=== PATIENT | female | born 1950 | race Caucasian/White ===

== ENCOUNTER 2019-05-06 06:00 | Outpatient (RCR) | payer MEDICARE, SELFPAY | END 2019-06-05 23:59 | disposition home or self-care (01) | LOC: WPT 06:00 | PROVIDERS: Family Provider Nurse Practitioner Family; PCP Nurse Practitioner Family; Referring Provider Nurse Practitioner Family; Visit Provider Nurse Practitioner Family | DX: M62.82 Rhabdomyolysis (principal) | CPT/HCPCS: 97110; 97161 ==

== ENCOUNTER → 2019-06-03 10:57 | Outpatient (BNVA) | payer MEDICARE, SELFPAY | PROVIDERS: PCP Nurse Practitioner Family; Referring Provider Nurse Practitioner Family; Visit Provider Internal Medicine Rheumatology | DX: M33.20 Polymyositis, organ involvement unspecified (principal); R74.8 Abnormal levels of other serum enzymes; Z11.59 Encounter for screening for other viral diseases; I10 Essential (primary) hypertension; Z79.899 Other long term (current) drug therapy; N30.01 Acute cystitis with hematuria; Z87.891 Personal history of nicotine dependence; Z11.1 Encounter for screening for respiratory tuberculosis | CPT/HCPCS: 36415; 82085; 83516; 86038; 86480; 99204 ==

== ENCOUNTER 2019-06-03 12:51 | Outpatient (CLI) | payer MEDICARE, SELFPAY ==
--- NOTE | 2019-06-03 13:12 | XR_ITS ---
WS: [id number] CHEST 2 VIEWS HISTORY: PRIMARY HYPERTENSION COMPARISON: None available. Lungs: Clear with no abnormality. No pleural effusion or pneumothorax. Cardiac size: Normal. Mediastinum/Aorta: Mild atherosclerosis aorta. Bones: Normal. XR/XR chest 2V* [id number] IMPRESSION: Mild atherosclerosis aorta. Otherwise negative.
== END 2019-06-03 12:52 | disposition home or self-care (01) ==
LOC: RAD 12:57
PROVIDERS: PCP Nurse Practitioner Family; Visit Provider Nurse Practitioner Family
DX: I10 Essential (primary) hypertension (principal); I70.0 Atherosclerosis of aorta; R74.8 Abnormal levels of other serum enzymes; Z79.899 Other long term (current) drug therapy; M33.20 Polymyositis, organ involvement unspecified
CPT/HCPCS: 71046; 82306; 82550; 84450; 84460; 85651; 86140; 87077; 87086; 87186

== ENCOUNTER → 2019-06-03 13:00 | Outpatient (BNVA) | payer MEDICARE, SELFPAY | PROVIDERS: PCP Nurse Practitioner Family; Referring Provider Nurse Practitioner Family; Visit Provider Internal Medicine Rheumatology | DX: I10 Essential (primary) hypertension (principal); M33.20 Polymyositis, organ involvement unspecified; Z79.899 Other long term (current) drug therapy; R74.8 Abnormal levels of other serum enzymes; Z92.29 Personal history of other drug therapy; Z11.59 Encounter for screening for other viral diseases | CPT/HCPCS: 81001 ==

== ENCOUNTER 2019-06-10 08:41 | Outpatient (CLI) | payer MEDICARE, SELFPAY ==
[2019-06-10 09:36] VITALS: BMI 31.9
--- NOTE | 2019-06-10 09:43 | ECG_ITS ---
NAME OF STUDY: EXERCISE SESTAMIBI STRESS TEST INDICATION: Chest Pain; Chest Pain EXERCISE TREADMILL STRESS ORDERING PHYSICIAN: Saleem CLINICAL INFORMATION: Unknown INTERPRETATION: 1. The patient exercised for 2 minutes and 27 seconds on a Puma protocol. She reached a maximum heart rate of 147 beats per minute, which is 97 % of her maximum predicted heart rate. The test was stopped due to fatigue and achieving the desired heart rate. 2. The baseline electrocardiogram reveals sinus rhythm and is a normal tracing. 3. With exercise, there were no ST segment changes to suggest ischemia. 4. The resting blood pressure was 146/75. The maximum blood pressure was 212/67. 5. At maximum exercise, the patient achieved 4.6 METs with a rate pressure product of 247. 6. The patient experienced no chest pain or arrhythmias during the examination. CONCLUSION: 1. Normal exercise treadmill test. 2. Far below average exercise capacity for age. 3. Hypertensive blood pressure response to exercise. 4. Nuclear imaging to follow Electronically Signed On 06-10-2019 16:50:30 VENEER TRIMMER by Jagdeep Shannon M.D. [email or web address]
--- NOTE | 2019-06-10 09:44 | NMCV_ITS ---
NM jaret perf SPECT r/s* [id number] Yolie Walker Age: 69 Gender: F : 1950 Exam Date: 06/10/2019 10:00 Ordering Phys: Kayla Monge Technologist: GILLIAN Gavin Exam Location: [facility] Indications: Abnormal enzymes levels STRESS TEST Please see separate stress test report in [facility] for full findings IMAGE PROTOCOL Rest/Stress 1 Exercise Day Radiopharmaceutical Dose (mCi) Administration Site Administered by Rest: Tc-99m 10.5 IV GILLIAN Gavin Sestamibi Stress:Tc-99m 32.4 IV GILLIAN Gavin Sestamiallegra Rest: 10-Jun-2019 60 Discovery 630 Stress: 10-Jun-2019 30 Discovery 630 Radiopharmaceutical was injected at 87 % maximum heart rate. Images obtained in supine and prone position. SPECT RESULTS Technical Quality: Excellent Raw Data Analysis: Normal Image Corrections: No attenuation or motion correction applied Summed Stress Score: 2 Summed Rest Score: 0 Summed Difference Score: 2 PERFUSION FINDINGS SPECT images demonstrate homogeneous tracer distribution throughout the myocardium. FUNCTIONAL RESULTS (calculated via Gated SPECT) Stress Image LV EF (%): 59 Stress EDV (mL):64 TID: 0.86 Stress ESV (mL):26 Rest Image LV EF (%): 59 FUNCTIONAL FINDINGS: There is normal left ventricular systolic function. IMPRESSIONS Myocardial perfusion imaging is normal and low probability for obstructive coronary artery disease. EKG segment will be documented separately. Jere Kemp MD (Electronically Signed) Final Date: 10 June 2019 17:43 S
--- NOTE | 2019-06-10 11:40 | SUR.PREOP ---
Patient reports no pain or discomfort prior to the start of the procedure.
[2019-06-10 12:04] VITALS: BP 142/82; PULSE 73
== END 2019-06-10 08:42 | disposition home or self-care (01) ==
LOC: CDL 08:43
PROVIDERS: Family Provider Nurse Practitioner Family; PCP Nurse Practitioner Family; Visit Provider Nurse Practitioner Family
DX: R07.9 Chest pain, unspecified (principal); R74.8 Abnormal levels of other serum enzymes
CPT/HCPCS: 78452; 93017; A9500

== ENCOUNTER 2019-06-29 13:02 | Outpatient (CLI) | payer MEDICARE, SELFPAY ==
--- NOTE | 2019-06-29 13:50 | MR_ITS ---
WS: [id number] MRI LEFT FEMUR without CONTRAST. COMPARISON: None Multiplanar, multisequence imaging is performed without contrast. There are subtle areas of very slight increased T2 signal noted within the muscles of the LEFT femur. The most significant changes involve the adductor aníbal and adductor brevis. Some additional more s ubtle changes in the rectus femoris. There are no focal fluid collections or fluid extending along th e perifascicles. No marrow signal abnormalities. No adenopathy is no noted at the groin. MR/MR femur LT wo con* [id number] IMPRESSION: 1. Very minimal increased T2 signal within the adductor muscles and the rectus femoris. These changes can be seen with mild inflammatory myopathy. There are no fluid collections. 2. No fluid along the muscle fascicles. No marrow signal abnormality.
== END 2019-06-29 13:03 | disposition home or self-care (01) ==
LOC: RADWPI 13:08
PROVIDERS: Family Provider Nurse Practitioner Family; PCP Nurse Practitioner Family; Visit Provider Internal Medicine Rheumatology
DX: G72.49 Other inflammatory and immune myopathies, not elsewhere classified (principal); M62.81 Muscle weakness (generalized); R74.8 Abnormal levels of other serum enzymes; Z92.29 Personal history of other drug therapy
CPT/HCPCS: 73718

== ENCOUNTER 2019-07-20 10:25 | Day surgery (SDC) | payer MEDICARE, SELFPAY ==
[2019-07-17 14:45] VITALS: BMI 31.6
[2019-07-20 10:47] VITALS: BP 150/76; PULSE 64; RESP 18; TEMP 36.8; O2SAT 100
[2019-07-20] MEDS: sodium chloride 0.9% 1,000 ML 30 ML IV (11:07)
--- NOTE | 2019-07-20 11:21 | ANES.PREANE2 ---
Pre-Anesthetic Assessment Pre-Anesthetic Assessment: Height/Weight: Height 1.65 m Weight 86.183 kg Temp Pulse Resp BP Pulse Ox 98.3 F 64 18 150/76 100 07/20/19 10:47 07/20/19 10:47 07/20/19 10:47 07/20/19 10:47 07/20/19 10:47 Preop Diagnosis: Myopathy Proposed Procedure: Operation Date: 07/20/19 12:00 Proposed Procedures p Muscle Biopsy/Left Thigh G72.9(Left) - Babak Dyer MD Last intake: Intake Last Liquid Date 07/20/19 Last Liquid Time 00:00 Last Solid Date 07/20/19 Last Solid Time 00:00 Social: Packs per day: 1 Pack years: 29 Comment: quit 11/22 Exam: Pre-Anes Outpt Exam: alert, oriented x 3, clear to auscultation bilaterally and regular rate & rhythm Airway: Submandibular: WNL Cervical ROM: WNL MP: 1 Dentition: False and Partials CV/HEM: Comments: 2 blocks/2 FOS for 1year due to muscle weakness Metabolic: Metabolic: DM (rx'd x 4y, normally 110-130) Anesthetic Plan: ASA status: 3 Anesthesia: MAC Meds/Allergies Current Medications: Current Medications Generic Name Dose Route Start Last Admin Trade Name Freq PRN Reason Stop Dose Admin Sodium Chloride 1,000 mls @ 30 ml s/hr 07/20/19 09:00 07/20/19 11:07 Sodium Chloride 0.9% IV 07/21/19 08:59 30 mls/hr .Q24H NANETTE Administration PFSH Anesthesia PFSH: Social History Smoking and tobacco status: former smoker Alcohol intake: current Alcohol intake frequency: holidays/special occasions only History of recent travel: No Data Anesthesia Cardiac Studies: No Data to Display
--- NOTE | 2019-07-20 11:43 | P.HP_ITS ---
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 Very minimal increased T2 signal within the adductor muscles and the rectus femoris. These changes can be seen with mild inflammatory myopathy. There are no fluid collections. 2. No fluid along the muscle fascicles. No marrow signal abnormality. Currently patient denies muscle weakness and she was referred to me for potential muscle biopsy to clarify the underlying disorder. Patient is scheduled today for left lower extremity muscle biopsy ROS All systems have been reviewed negative except as per the above Medications/Allergies* Home Medications Medication Instructions Recorded Confirmed Type ergocalciferol (vitamin D2) 1,250 1,250 mcg PO QDAY 06/02/19 07/20/19 History mcg (50,000 unit) capsule metformin 500 mg tablet 500 mg PO BID 06/02/19 07/20/19 History mometasone 0.1 % topical ointment 1 applic TOPICAL QDAY 06/02/19 07/20/19 History cyanocobalamin (vitamin B-12) 1,000 mcg PO DAILY 07/20/19 07/20/19 History [Vitamin B-12] Allergies/Adverse Reactions Allergy/AdvReac Type Severity Reaction Status Date / Time Tihfbek-Sgz-Hjq Reductase Allergy Intermediate muscle Verified 07/17/19 14:42 Inhibitor weakness Current Medications: Generic Name Dose Route Start Last Admin Trade Name Freq PRN Reason Stop Dose Admin Sodium Chloride 1,000 mls @ 30 mls/hr 07/20/19 09:00 07/20/19 11:07 Sodium Chloride 0.9% IV 07/21/19 08:59 30 mls/hr .Q24H NANETTE Administration Pertinent History/Comorbid Conditions* Medical History (Updated 07/06/19 @ 10:04 by Babak Dyer MD) Elevated CPK Encounter for screening for other viral diseases High risk medication use History of statin therapy Hyperlipemia Hypertension Muscle weakness Polymyositis Statin-induced myositis Type 2 diabetes mellitus Surgical History (Updated 06/03/19 @ 22:43 by Vik Hoffman MD) History of cholecystectomy History of total hysterectomy Family History (Updated 06/02/19 @ 17:29 by Melvi Mock LPN) Diabetes Sister Brother Social History Smoking and tobacco status: former smoker Alcohol intake: current Alcohol intake frequency: holidays/special occasions only History of recent travel: No Pertinent Exam Findings alert, oriented x 3, clear to auscultation bilaterally, regular rate & rhythm and operative site marked Abdominal examination nontender nondistended soft no guarding or rigidity Recommendations Surgery/Procedure today (Left thigh muscle biopsy) Coding Level of Care Code Acute Automatic Lathe Setter for Laith Whitaker
[2019-07-20] MEDS: lidocaine 2% INJ 20 mL INJECTION (12:39)
--- NOTE | 2019-07-20 12:40 | P.OP_ITS ---
Operative Report Date of procedure: July 20, 2019 Pre-op Diagnosis: Myopathy Post-op diagnosis: same Post-op Findings: Obese Left thigh muscle infiltrated with fat Procedure Done: Open biopsy of left rectus femoris muscle Specimens removed/disposition: Left thigh muscle biopsy Surgeon: Babak Dyer Wastewater Treatment Supervisor: Cain Schumacher Circulating nurse Sofi Anesthesia: MAC (Jorge Selby) Estimated blood loss (mL): 5 Condition: stable Disposition: same day Brief History: This is a pleasant 69-year-old female patient referred to my office due to elevated CPK without obvious explanation, patient was referred to me for further evaluation and obtaining a muscle biopsy. Informed consent per chart Procedure: Procedure: After identifying the patient holding area, the correct site and side was marked before the procedure by myself, left thigh, patient was then taken to the operative suite, was placed in supine position, IV propofol was given by the anesthesia provider,Timeout was done verifying the patient's name/date of /planned procedure and destination after the procedure, all were in agreement.SCDs confirmed to be functioning, preoperative antibiotics administered per protocol, and beta bettina protocol was confirmed Prep and drape of the left thigh region was done under the usual sterile technique. Local anesthesia 2% lidocaine was infiltrated site of the incision overlying the left rectus femoris muscle, a longitudinal skin incision was done all the way down to the subcutaneous tissues dissection was then carried included incising the sheath of the muscle with 10 blade knife followed by placement of self- retaining retractor, that point portion of wooden sticks precut was placed onto the muscle fibers and 3-0 silk was placed caudad and cephalad to the stick including underlying muscle fibers that was cut and sent for pathology the same technique was used again using another stick for another portion of longitudinal muscle fibers, hemostasis was achieved followed by closure of the overlying fascia by running 3-0 Vicryl then deep subdermal closure then 4-0 Monocryl by surgical glue and dry dressing and Mark wrap. The specimen was passed to the circulating nurse fresh placed on a piece of Telfa soaked in normal saline Count was completed at the end of the procedure including instruments,needles and sponges Patient was taken to the recovery room in stable condition I was present for the whole entire procedure
[2019-07-20 12:56] VITALS: BP 117/63; PULSE 67; RESP 18; TEMP 36.6; O2SAT 93
[2019-07-20 13:10] VITALS: BP 132/73; PULSE 64; RESP 18; O2SAT 98
== END 2019-07-20 13:44 | disposition home or self-care (01) ==
PROVIDERS: Family Provider Nurse Practitioner Family; PCP Nurse Practitioner Family; Visit Provider Surgery
PROC: (CPT 20205; principal; 2019-07-20 12:00)
DX: G72.9 Myopathy, unspecified (principal); E66.9 Obesity, unspecified; Z68.31 Body mass index [BMI] 31.0-31.9, adult; E78.5 Hyperlipidemia, unspecified; I10 Essential (primary) hypertension; E11.9 Type 2 diabetes mellitus without complications; Z83.3 Family history of diabetes mellitus; Z87.891 Personal history of nicotine dependence
CPT/HCPCS: 20205; 12345; 88300; J0690; J2001; J2704; J3010; J7030

== ENCOUNTER → 2019-07-23 09:45 | Outpatient (BNVA) | payer MEDICARE, SELFPAY | PROVIDERS: Family Provider Nurse Practitioner Family; PCP Nurse Practitioner Family; Visit Provider Internal Medicine Rheumatology | DX: Z79.899 Other long term (current) drug therapy (principal); M62.81 Muscle weakness (generalized); R74.8 Abnormal levels of other serum enzymes; Z11.59 Encounter for screening for other viral diseases; Z79.52 Long term (current) use of systemic steroids | CPT/HCPCS: 36415; 80076; 82085; 82550; 82565; 85025; 85651; 86140; 99214 ==

== ENCOUNTER → 2019-07-23 11:22 | Outpatient (BNVA) | payer MEDICARE, SELFPAY | PROVIDERS: Family Provider Nurse Practitioner Family; PCP Nurse Practitioner Family; Visit Provider Internal Medicine Rheumatology | DX: Z79.899 Other long term (current) drug therapy (principal); M62.81 Muscle weakness (generalized); R74.8 Abnormal levels of other serum enzymes; Z11.59 Encounter for screening for other viral diseases | CPT/HCPCS: 82085; 85025 ==

== ENCOUNTER → 2019-09-22 13:54 | Outpatient (BNVA) | payer MEDICARE, SELFPAY | PROVIDERS: Family Provider Nurse Practitioner Family; PCP Nurse Practitioner Family; Visit Provider Internal Medicine Rheumatology | DX: M60.9 Myositis, unspecified (principal); Z79.899 Other long term (current) drug therapy; M62.81 Muscle weakness (generalized); T46.6X5A Adverse effect of antihyperlipidemic and antiarteriosclerotic drugs, initial encounter; Z92.29 Personal history of other drug therapy; Z22.7 Latent tuberculosis; Z79.52 Long term (current) use of systemic steroids; R74.8 Abnormal levels of other serum enzymes | CPT/HCPCS: 36415; 82085; 82550; 85651; 86140; 99214 ==

== ENCOUNTER → 2019-12-08 11:00 | Outpatient (BNVA) | payer MEDICARE, SELFPAY | PROVIDERS: Family Provider Nurse Practitioner Family; PCP Nurse Practitioner Family; Visit Provider Internal Medicine Rheumatology | DX: M60.9 Myositis, unspecified (principal); Z79.899 Other long term (current) drug therapy; T46.6X5A Adverse effect of antihyperlipidemic and antiarteriosclerotic drugs, initial encounter; Z92.29 Personal history of other drug therapy; R74.8 Abnormal levels of other serum enzymes; Z22.7 Latent tuberculosis; Z79.52 Long term (current) use of systemic steroids | CPT/HCPCS: 36415; 80076; 82085; 82306; 82550; 82565; 85025; 85651; 86140; 99214 ==

== ENCOUNTER → 2020-03-09 11:18 | Outpatient (BNVA) | payer MEDICARE, SELFPAY | PROVIDERS: Family Provider Nurse Practitioner Family; PCP Nurse Practitioner Family; Visit Provider Internal Medicine Rheumatology | DX: M60.9 Myositis, unspecified (principal); Z79.899 Other long term (current) drug therapy; T46.6X5A Adverse effect of antihyperlipidemic and antiarteriosclerotic drugs, initial encounter; Z92.29 Personal history of other drug therapy; R74.8 Abnormal levels of other serum enzymes; Z22.7 Latent tuberculosis; M62.81 Muscle weakness (generalized); M05.9 Rheumatoid arthritis with rheumatoid factor, unspecified; Z79.52 Long term (current) use of systemic steroids | CPT/HCPCS: 99214 ==

== ENCOUNTER → 2021-01-10 13:36 | Outpatient (BNVA) | payer MEDICARE, SELFPAY | PROVIDERS: Family Provider Nurse Practitioner Family; PCP Nurse Practitioner Family; Visit Provider Internal Medicine Rheumatology | DX: M60.9 Myositis, unspecified (principal); T46.6X5D Adverse effect of antihyperlipidemic and antiarteriosclerotic drugs, subsequent encounter; Z79.899 Other long term (current) drug therapy; M62.81 Muscle weakness (generalized); R74.8 Abnormal levels of other serum enzymes; Z22.7 Latent tuberculosis; Z71.89 Other specified counseling; Z87.891 Personal history of nicotine dependence | CPT/HCPCS: 99214 ==

== ENCOUNTER → 2021-05-22 12:47 | Outpatient (BNVA) | payer MEDICARE, SELFPAY | PROVIDERS: Family Provider Nurse Practitioner Family; PCP Nurse Practitioner Family; Visit Provider Internal Medicine Rheumatology | DX: M60.9 Myositis, unspecified (principal); T46.6X5A Adverse effect of antihyperlipidemic and antiarteriosclerotic drugs, initial encounter; Z71.89 Other specified counseling; Z79.899 Other long term (current) drug therapy; Z87.891 Personal history of nicotine dependence | CPT/HCPCS: 99214 ==

== ENCOUNTER → 2021-11-15 13:04 | Outpatient (BNVA) | payer MEDICARE, SELFPAY | PROVIDERS: Family Provider Nurse Practitioner Family; PCP Nurse Practitioner Family; Visit Provider Internal Medicine Rheumatology | DX: M60.9 Myositis, unspecified (principal); T46.6X5D Adverse effect of antihyperlipidemic and antiarteriosclerotic drugs, subsequent encounter; Z79.899 Other long term (current) drug therapy; R74.8 Abnormal levels of other serum enzymes; Z71.89 Other specified counseling | CPT/HCPCS: 99214 ==